=== PATIENT | female | born 1965 | race Two or more races ===

== ENCOUNTER 2022-10-28 11:58 | Emergency (ER) | payer OTHER ==
[~2022-10-28] VITALS: Ht 152.4 cm; Wt 66.2 kg
[~2022-10-28 11:58] MED LIST: TOPROL XL25 MG PO
[2022-10-28] MEDS ORDERED: TOPROL XL50 M1 PO (12:30)
[2022-10-28] MEDS ORDERED: MECLIZINE HCL25 MG PO (16:03)
== END 2022-10-28 16:06 | disposition home or self-care (01) ==
LOC: ER 11:58
DX: M54.2 Cervicalgia (principal); R51.9 Headache, unspecified; Z20.822 Contact with and (suspected) exposure to COVID-19; I10 Essential (primary) hypertension

== ENCOUNTER 2024-06-02 10:18 | Emergency (ER) | payer OTHER ==
[~2024-06-02] VITALS: Ht 152.4 cm; Wt 66.2 kg
[~2024-06-02 10:18] MED LIST changes: +MECLIZINE HCL25 MG PO; +TOPROL XL50 M1 PO
[2024-06-02] MEDS ORDERED: ORPHENADRINE CITRATE 100 MG TABLET PO STA (11:04)
[2024-06-02] MEDS ORDERED: KETOROLAC TROMETHAMINE 60 MG VIAL IM STA (11:05)
[2024-06-02] MEDS ORDERED: KETOROLAC TROMETHAMINE 60 MG VIAL IM ONE (11:19)
== END 2024-06-02 13:10 | disposition home or self-care (01) ==
LOC: ER 10:19
DX: M62.838 Other muscle spasm (principal); R51.9 Headache, unspecified; I10 Essential (primary) hypertension